=== PATIENT | female | born 1975 | race Caucasian/White ===

== ENCOUNTER 2020-10-01 16:24 | Day surgery (SDCO) | payer OTHER ==
[2020-10-01 17:31] LABS: BASOPHIL 0.8 % (0-2); EOSINOPHIL 1.2 % (0-5); HCT 44.8 % (37.0-47.0); HGB 13.9 g/dl (12.5-16.0); LYMPHOCYTE 23.1 % (15-48); MCH 27.7 pg (25.0-31.0); MCV 89.2 fL (78.0-100.0); MONOCYTE 8.7 % (0-12); MPV 9.9 fL (6.0-9.5); NEUTROPHIL 65.7 % (41-80); NRBC 0; PLT 361 K/uL (150-400); RBC 5.02 M/uL (4.20-5.40); RDW 14.9 % (11.5-14.0); WBC 11.8 K/uL (4.0-10.5)
[2020-10-01 17:51] LABS: ALBUMIN 3.5 g/dL (3.4-5.0); BILIRUBIN - TOTAL 0.2 mg/dL (0.2-1.0); BUN/CREAT RATIO (CALC) 15.6 RATIO; CREATININE 0.77 mg/dL (0.51-0.95); GLOBULIN (CALCULATION) 3.9 g/dL; POTASSIUM 3.8 mmol/L (3.5-5.1); TOTAL PROTEIN 7.4 g/dL (6.4-8.2)
[2020-10-01 18:04] LABS: PRO-BNP 84 pg/mL (<125)
[2020-10-01 19:51] LABS: CORONAVIRUS 2019 SARS-COV-2 NEGATIVE (NEGATIVE); INFLUENZA A NAA NEGATIVE (NEGATIVE)
[2020-10-01] MEDS ORDERED: PRILOSEC20 MG PO (21:16)
[2020-10-01] MEDS ORDERED: TOLTERODINE TART4 MG PO (21:17)
[2020-10-01] MEDS ORDERED: ASPIRIN81 MG PO (21:17)
[2020-10-02 05:52] LABS: BASOPHIL 0.8 % (0-2); EOSINOPHIL 1.9 % (0-5); HCT 43.3 % (37.0-47.0); HGB 13.2 g/dl (12.5-16.0); LYMPHOCYTE 28.2 % (15-48); MCH 27.6 pg (25.0-31.0); MCHC 30.5 g/dL (32.0-36.0); MCV 90.4 fL (78.0-100.0); MONOCYTE 9.2 % (0-12); MPV 9.8 fL (6.0-9.5); NEUTROPHIL 59.8 % (41-80); NRBC 0; PLT 303 K/uL (150-400); RBC 4.79 M/uL (4.20-5.40); RDW 14.9 % (11.5-14.0); WBC 7.4 K/uL (4.0-10.5)
[2020-10-02 06:28] LABS: BUN/CREAT RATIO (CALC) 16.5 RATIO; CREATININE 0.85 mg/dL (0.51-0.95); POTASSIUM 4.2 mmol/L (3.5-5.1)
[2020-10-02] MEDS ORDERED: TOPROL XL 25MG25 MG PO (10:47)
--- NOTE | 2020-10-02 11:13 | NUR ---
PT REPORTS SHE LOIVES WITH SPOUSE; INDEPENDENT WITH CARE; PLEASE ADVISE OF ANY DISCHARGE NEEDS
--- NOTE | 2020-10-02 12:08 | NUR ---
PT DC'd AND ESCORTED FROM FACILITY VIA WHEELCHAIR @ 1203 W/ NO ISSUES. PICKED UP PT @ [facility]
== END 2020-10-02 12:03 | disposition home or self-care (01) ==
LOC: FER 16:24 → FTCU 18:49
PROVIDERS: Emergency Medicine; Nurse Practitioner; ADMIT Internal Medicine
DX: R00.0 Tachycardia, unspecified (principal); R00.2 Palpitations; R07.9 Chest pain, unspecified; I10 Essential (primary) hypertension; K21.9 Gastro-esophageal reflux disease without esophagitis; Z98.890 Other specified postprocedural states; Z82.49 Family history of ischemic heart disease and other diseases of the circulatory system; Z86.79 Personal history of other diseases of the circulatory system; Z20.822 Contact with and (suspected) exposure to COVID-19
CPT/HCPCS: 36415; 71045; 80048; 80053; 83735; 83880; 84443; 84484; 85025; 93005; G0378; J1650; U0002

== ENCOUNTER 2021-03-22 20:22 | Emergency (ER) | payer OTHER ==
[~2021-03-22 20:22] MED LIST: ASPIRIN81 MG PO; PRILOSEC20 MG PO; TOLTERODINE TART4 MG PO; TOPROL XL 25MG25 MG PO
[2021-03-22 22:58] LABS: BASOPHIL 1.2 % (0-2); EOSINOPHIL 2.5 % (0-5); HCT 42.3 % (37.0-47.0); LYMPHOCYTE 26.1 % (15-48); MCH 27.1 pg (25.0-31.0); MCHC 30.7 g/dL (32.0-36.0); MCV 88.3 fL (78.0-100.0); MONOCYTE 15.2 % (0-12); NEUTROPHIL 54.8 % (41-80); NRBC 0; PLT 287 K/uL (150-400); RBC 4.79 M/uL (4.20-5.40); RDW 15.8 % (11.5-14.0)
[2021-03-22 23:15] LABS: ALBUMIN 3.5 g/dL (3.4-5.0); BILIRUBIN - TOTAL 0.2 mg/dL (0.2-1.0); BUN/CREAT RATIO (CALC) 15.6 RATIO; C-REACTIVE PROTEIN 1.3 mg/dL (<=0.90); CREATININE 0.77 mg/dL (0.51-0.95); GLOBULIN (CALCULATION) 3.9 g/dL; POTASSIUM 4.1 mmol/L (3.5-5.1); TOTAL PROTEIN 7.4 g/dL (6.4-8.2)
[2021-03-22 23:22] LABS: PRO-BNP 110 pg/mL (<125)
[2021-03-22 23:40] LABS: BILIRUBIN NEGATIVE (NEGATIVE); BLOOD 2+ Ery/uL (NEGATIVE); CLARITY CLEAR (CLEAR); COLOR YELLOW (YELLOW); GLUCOSE (U) NORMAL (NORMAL); LEUKOCYTES NEGATIVE Leu/uL (NEGATIVE); NITRITE NEGATIVE (NEGATIVE); PROTEIN NEGATIVE (NEGATIVE); UROBILINOGEN 0.2 mg/dL (0.2-1.0)
[2021-03-22 23:54] LABS: BACTERIA TRACE
== END 2021-03-23 04:44 | disposition home or self-care (01) ==
LOC: FER 20:22
PROVIDERS: Emergency Medicine
DX: U07.1 COVID-19 (principal); Z23 Encounter for immunization
CPT/HCPCS: 36415; 80053; 81001; 83605; 83615; 83880; 84145; 84484; 85025; 86140; 93005; M0243; Q0244; U0002